=== PATIENT | female | born 1980 | race Two or more races ===

== ENCOUNTER 2016-10-04 03:21 | Emergency (ER) | payer MEDICAID ==
--- NOTE | 2016-10-04 03:27 | EDPHY ---
H & P HPI/ROS: HPI CHIEF COMPLAINT: Right thumb pain HISTORY OF PRESENT ILLNESS: The patient very pleasant 36-year-old female denies any significant medical history does not take any daily medications, she is not diabetic, she presents emergency room with throbbing pain to her right thumb. Prevented her to sleep. She states she pulled a hangnail out of their on the lateral side of her right thumb few days ago. Noticed it got red and swollen and painful. Throbbing. No fever. No streaking up her thumb no hand pain no wrist pain. Past Medical History: Denies Past Surgical History: Denies Social History: Denies daily use of drugs alcohol tobacco products Family History: Noncontributory ROS REVIEW OF SYSTEMS: A comprehensive 10 point review of systems is otherwise negative aside from elements mentioned in the history of present illness. Exam Constitutional triage nursing summary reviewed, vital signs reviewed, awake/ alert. Eyes normal conjunctivae and sclera, EOMI, PERRLA. HENT normal inspection, atraumatic, moist mucus membranes, no epistaxis, neck supple/ no meningismus, no raccoon eyes. Respiratory clear to auscultation bilaterally, normal breath sounds, no respiratory distress, no wheezing. Cardiovascular rate normal, regular rhythm, no murmur, no edema, distal pulses normal. Gastrointestinal soft, non-tender, no rebound, no guarding, normal bowel sounds, no distension, no pulsatile mass. Genitourinary no CVA tenderness. Musculoskeletal no midline vertebral tenderness, full range of motion, no calf swelling, no tenderness of extremities, no meningismus, good pulses, neurovascularly intact. Skin right thumb: There appears to be mild erythema and swelling to the lateral aspect of the right thumb where she removed a hangnail, there is no abscess or significant fluctuance. Paronychia present but redness and warmth. May be early infection. Neurologic awake, alert and oriented x 3, AAOx3, moves all 4 extremities equally, motor intact, sensory intact, CN II-XII intact, normal cerebellar, normal vision, normal speech. Psychiatric normal mood/affect. Heme/Lymph/Immune no lymphadenopathy. Differential Diagnosis: Includes but is not limited to in a particular order thumbnail infection, cellulitis, early paronychia Medical Decision Making: Plan for this patient recommend doing warm soaks 3 to 4 times a day for 20 minutes. Keflex antibiotic as prescribed. Return emergency room if there is worsening symptoms including worsening redness, pain , swelling Source: Patient - Medical/Surgical History Hx Asthma: No Hx Chronic Respiratory Disease: No Hx Diabetes: No Hx Cardiac Disease: No Hx Renal Disease: No Hx Cirrhosis: No Hx Alcoholism: No Hx HIV/AIDS: No Hx Splenectomy or Spleen Trauma: No Other PMH: PSH: Csection, gallbladder removal;. PMH: denies - Social History Smoking Status: Former smoker Allergies/Adverse Reactions: No Known Allergies Allergy (Verified 09/16/14 22:47) Home Medications: Medication Instructions Recorded Vit27&Calcium/Iron/FA 1 each PO DAILY 07/29/14 [] Chlorpheniramine Maleate 4 mg PO Q4 PRN 09/17/14 oxyCODONE IR [Oxycodone Ir (*)] 5 - 10 mg PO Q4 PRN 09/17/14 Cephalexin [Keflex] 500 mg PO Q6H #28 cap 10/04/16 Departure - Departure Disposition: Home, Routine, Self-Care Clinical Impression: Infection of thumb Condition: Good Instructions: Cellulitis (ED) Additional Instructions: 1. Warm soaks 3 to 4 times a day. 2. Take antibiotics as prescribed. 3. Return emergency room if there is worsening swelling, redness, drainage. Stand Alone Forms: Work Excuse Prescriptions: Cephalexin [Keflex] 500 mg PO Q6H #28 cap
[2016-10-04 03:33] VITALS: BP 131/95; PULSE 87; RESP 16; TEMP 98.1; O2SAT 98
== END 2016-10-04 03:39 | disposition home or self-care (01) ==
LOC: CED 03:21
DX: L08.9 Local infection of the skin and subcutaneous tissue, unspecified (principal); Z87.891 Personal history of nicotine dependence

== ENCOUNTER 2016-10-04 20:52 | Emergency (ER) | payer SELFPAY ==
[2016-10-04 21:22] VITALS: RESP 18
--- NOTE | 2016-10-04 22:11 | EDPHY ---
H & P Stated Complaint: Right thump infected and swollen, seen [facility] today. Time Seen by Provider: 10/04/16 22:11 - Personal History LMP (Females 10-55): 8-14 Days Ago Current Tetanus/Diphtheria Vaccine: Unsure Current Tetanus Diphtheria and Acellular Pertussis (TDAP): Unsure - Medical/Surgical History Hx Asthma: No Hx Chronic Respiratory Disease: No Hx Diabetes: No Hx Cardiac Disease: No Hx Renal Disease: No Hx Cirrhosis: No Hx Alcoholism: No Hx HIV/AIDS: No Hx Splenectomy or Spleen Trauma: No Other PMH: PSH: , cholecystectomy. PMH: denies - Social History Smoking Status: Never smoked Constitutional: Initial Vital Signs Temperature (C) 36.7 C 10/04/16 21:17 Heart Rate 62 10/04/16 21:17 Respiratory Rate 18 10/04/16 21:17 Blood Pressure 138/97 H 10/04/16 21:17 O2 Sat (%) 96 10/04/16 21:17 Allergies/Adverse Reactions: No Known Allergies Allergy (Verified 10/04/16 21:22) Home Medications: Medication Instructions Recorded Cephalexin [Keflex] 500 mg PO Q6H #28 cap 10/04/16 Medical Decision Making ED Course/Re-evaluation: CHIEF COMPLAINT: Thumbnail pain HISTORY OF PRESENT ILLNESS: The patient is a 36 y/o female complaining of possible infection under her right thumbnail. She pulled off a hangnail a few days ago without issue, but began to develop pain and swelling at the site yesterday. She was evaluated at [facility] early this morning for this and discharged with a script for Keflex. Her pain and swelling has since worsened and she was unable to get into an urgent care for reevaluation tonight. She denies fever or systemic symptoms. REVIEW OF SYSTEMS: A 10 point review of systems was performed and is negative with the exception of the elements mentioned in the history of present illness. PHYSICAL EXAM: HR, BP, O2 Sat, RR. Temp noted General Appearance: Alert, well hydrated, appropriate, and non-toxic appearing. Head: Atraumatic without scalp tenderness or obvious injury Eyes: Pupils equal, round, reactive to light and accommodation, EOMI, no trauma , no injection. Nose: Atraumatic, no rhinorrhea, clear. Throat: Mucus membranes moist. Neck: Supple Respiratory: No respiratory distress Cardiovascular: Good capillary refill all extremities. Musculoskeletal: Normal active ROM of all extremities, atraumatic. Neurological: Alert, appropriate, and interactive. Nonfocal neuro exam. Skin: Perionychium abscess around right thumbnail. No rashes, good turgor, no nodules on palpation. Past medical history: Denies Past surgical history: Denies Family history: noncontributory Social history: Lives in [place]. Employed. DIAGNOSTICS/PROCEDURES/CRITICAL CARE TIME: Procedure: Incision and Drainage of perionychium. The patient's abscess was located on the body part. Risks, benefits, alternatives discussed with the patient and consent obtained. The area was prepped and draped in sterile fashion. The patient received local anesthesia with 1% lidocaine with epinephrine. The abscess was incised with a #11 blade and purulent drainage was expressed. The wound was irrigated and dressed. The patient tolerated the procedure well. The procedure was performed by myself. DIFFERENTIAL DIAGNOSIS: The differential diagnosis for the patient's symptoms included but was not limited to perionychium abscess, cellulitis, other infectious causes. MEDICAL DECISION MAKIN36 y/o female presents with perionychium abscess along right thumbnail. No streaking. Abscess was drained successfully. I've advised patient to continue antibiotics as previously prescribed and follow up with her PCP as needed. Return precautions given. She is comfortable with this plan. Departure - Departure Disposition: Home, Routine, Self-Care Clinical Impression: Paronychia of right thumb Condition: Good Instructions: Cephalexin (By mouth), Paronychia (ED) Additional Instructions: Continue taking Keflex as prescribed. Follow up with your primary care provider for unimproved symptoms over the next few days. Return for worsening of condition. Referrals: Camilo Lee MD [Medical Doctor] - As per Instructions Report Scribed for: Skyler Giraldo Report Scribed by: Denisse Barber Date of Report: 10/04/16 Time of Report: 22:54
[2016-10-04] MEDS ORDERED: HYDROCOD/APAP 5/325 PREPACK#6 BTL TAKEHOME ONE (22:56)
[2016-10-04 23:24] VITALS: BP 130/100; PULSE 60; TEMP 97.3; O2SAT 94
== END 2016-10-04 23:27 | disposition home or self-care (01) ==
DX: L03.011 Cellulitis of right finger (principal)

== ENCOUNTER 2017-02-15 16:43 | Emergency (ER) | payer OTHER ==
[2017-02-15 16:48] VITALS: RESP 18; TEMP 97.9
[2017-02-15] MEDS ORDERED: HYDROmorphONE/DILAUDID 1 MG/ML INJ IVP ONE (17:28)
[2017-02-15] MEDS ORDERED: NS 1,000 ML IV ONE (17:28)
--- NOTE | 2017-02-15 17:50 | EDPHY ---
H & P Stated Complaint: Left flank pain - Personal History LMP (Females 10-55): Over 28 Days Ago Current Tetanus/Diphtheria Vaccine: Unsure Current Tetanus Diphtheria and Acellular Pertussis (TDAP): Unsure - Medical/Surgical History Hx Asthma: No Hx Chronic Respiratory Disease: No Hx Diabetes: No Hx Cardiac Disease: No Hx Renal Disease: No Hx Cirrhosis: No Hx Alcoholism: No Hx HIV/AIDS: No Hx Splenectomy or Spleen Trauma: No Other PMH: PSH: , cholecystectomy. PMH: History of small-bowel obstruction, non operative - Social History Smoking Status: Never smoked HPI/ROS: Chief complaint: Left flank pain History of present illness: This is a 36-year-old female who presents to the emergency department for left flank pain. Patient reports the onset of symptoms yesterday. She describes a sharp pain. It is persistent in nature. It does not radiate. She denies precipitating factors. She denies alleviating factors. It is occasionally worsened with deep breathing. She denies other associated signs or symptoms including no fevers, no cold symptoms, no chest pain, no shortness of breath, no cough, no abdominal pain, no nausea, vomiting or diarrhea, no changes in urination. Review of systems: A 10 point review of systems was obtained and other than described above was negative (Leonard Rahman) - Physical Exam Exam: General Appearance: Alert, appears uncomfortable. Eyes: Pupils equal and round no pallor or injection. ENT, Mouth: Mucous membranes moist. Respiratory: There are no retractions, lungs are clear to auscultation. Cardiovascular: Regular rate and rhythm. Gastrointestinal: Abdomen is soft and non tender, no masses, bowel sounds normal. Genitourinary: No CVA tenderness Neurological: Alert and oriented x4. Strength and sensation intact and symmetrical. Skin: Warm and dry, no rashes. Musculoskeletal: Neck is supple non tender. Head and spine are nontender to palpation. There is no tenderness palpation over the rest the back. However when I have her laterally rotate at the waist reproduces pain. Extremities are symmetrical, full range of motion. She is ambulating without difficulty. Psychiatric: Patient is oriented X 3, there is no agitation. (Leonard Rahman) Constitutional: Initial Vital Signs Temperature (C) 36.6 C 02/15/17 16:44 Heart Rate 68 02/15/17 16:44 Respiratory Rate 18 02/15/17 16:44 Blood Pressure 148/92 H 02/15/17 16:44 O2 Sat (%) 98 02/15/17 16:44 O2 Delivery Mode Room Air Allergies/Adverse Reactions: No Known Allergies Allergy (Verified 10/04/16 21:22) Home Medications: Medication Instructions Recorded NK [No Known Home Meds] 02/15/17 Medical Decision Making - Diagnostics Imaging: Discussed imaging studies w/ scallop dredger Radiologist - Diagnostics Imaging Results: Imaging Impressions Abdomen/Pelvis CT 02/15/17 19:08 Impression: 1. No definite etiology for the patient's pain. 2. Mild sigmoid diverticulosis, without evidence of diverticulitis. 3. Bladder distention. 4. Additional findings, as above. Findings discussed with Leonard Rahman PA-C, on February 15, 2017 at 2002. Attention: This CT examination is specifically designed to evaluate patients who are clinically suspected of having acute obstructive uropathy. This examination does not use radiographic contrast, and as such, provides only a limited evaluation of the abdomen, pelvis, and retroperitoneum. If there is further clinical suspicion for pathological conditions other than obstructive uropathy, a complete CT evaluation of the abdomen and pelvis utilizing intravenous and oral contrast should be considered. ED Course/Re-evaluation: Patient seen under the supervision of my secondary supervising physician Dr. Lobo Vang. Patient presents to the emergency department for left flank pain. It is sharp pain that is nonradiating without associated signs or symptoms. It is occasionally worsened with deep breathing. On physical exam I can reproduce it having patient laterally rotate at the waist. Blood studies including D-dimer are negative. Urinalysis is negative. CT scan is negative. I do not appreciate significant pathology at this time that requires further emergency department intervention or inpatient management. She has been offered pain medications but has declined. She is asked to follow up with a primary care doctor for recheck and referral information is provided. Strict return precautions are given. Patient voiced understanding and agreement with plan. (Leonard Rahman) Differential Diagnosis: Included but not limited to musculoskeletal pain, urinary tract disease, peptic ulcer disease, gastritis, pulmonary disease including pneumonia or pulmonary embolism (Leonard Rahman) - Data Points Laboratory Results: Laboratory Results 02/15/17 17:57 02/15/17 17:57 02/15/17 02/15/17 02/15/17 17:57 17:57 17:57 WBC RBC Hgb Hct MCV MCH MCHC RDW Plt Count MPV Neut % (Auto) Lymph % (Auto) Hodgeman % (Auto) Eos % (Auto) Baso % (Auto) Nucleat RBC Rel Count Absolute Neuts (auto) Absolute Lymphs (auto) Absolute Monos (auto) Absolute Eos (auto) Absolute Basos (auto) Absolute Nucleated RBC Immature Gran % Immature Gran # D-Dimer 0.41 ug/mLFEU ug/mLFEU (0.00-0.50) Sodium Potassium Chloride Carbon Dioxide Anion Gap BUN Creatinine Estimated GFR Glucose Calcium Total Bilirubin 0.2 mg/dL mg/dL (0.1-1.4) Conjugated Bilirubin 0.2 mg/dL mg/dL (0.0-0.5) Unconjugated Bilirubin 0.0 mg/dL mg/dL (0.0-1.1) AST 28 IU/L IU/L (14-46) ALT 38 IU/L IU/L (9-52) Alkaline Phosphatase 66 IU/L IU/L (38-126) Total Protein 7.0 g/dL g/dL (6.3-8.2) Albumin 4.1 g/dL g/dL (3.5-5.0) Lipase Beta HCG, Qual NEGATIVE Urine Color Urine Appearance Urine pH Ur Specific Rand[place] Urine Protein Urine Ketones Urine Blood Urine Nitrate Urine Bilirubin Urine Urobilinogen Ur Leukocyte Esterase Urine Glucose 02/15/17 02/15/17 02/15/17 17:57 17:57 17:46 WBC 8.44 10^3/uL 10^3/uL (3.80-9.50) RBC 4.82 10^6/uL 10^6/uL (4.18-5.33) Hgb 13.4 g/dL g/dL (12.6-16.3) Hct 40.1 % % (38.0-47.0) MCV 83.2 fL fL (81.5-99.8) MCH 27.8 pg L pg (27.9-34.1) MCHC 33.4 g/dL g/dL (32.4-36.7) RDW 12.9 % % (11.5-15.2) Plt Count 284 10^3/uL 10^3/uL (150-400) MPV 9.4 fL fL (8.7-11.7) Neut % (Auto) 56.3 % % (39.3-74.2) Lymph % (Auto) 32.0 % % (15.0-45.0) Hodgeman % (Auto) 7.5 % % (4.5-13.0) Eos % (Auto) 3.1 % % (0.6-7.6) Baso % (Auto) 0.7 % % (0.3-1.7) Nucleat RBC Rel Count 0.0 % % (0.0-0.2) Absolute Neuts (auto) 4.76 10^3/uL 10^3/uL (1.70-6.50) Absolute Lymphs (auto) 2.70 10^3/uL 10^3/uL (1.00-3.00) Absolute Monos (auto) 0.63 10^3/uL 10^3/uL (0.30-0.80) Absolute Eos (auto) 0.26 10^3/uL 10^3/uL (0.03-0.40) Absolute Basos (auto) 0.06 10^3/uL 10^3/uL (0.02-0.10) Absolute Nucleated RBC 0.00 10^3/uL 10^3/uL (0-0.01) Immature Gran % 0.4 % % (0.0-1.1) Immature Gran # 0.03 10^3/uL 10^3/uL (0.00-0.10) D-Dimer Sodium 141 mEq/L mEq/L (134-144) Potassium 3.9 mEq/L mEq/L (3.5-5.2) Chloride 107 mEq/L mEq/L (97-110) Carbon Dioxide 19 mEq/l L mEq/l (22-31) Anion Gap 15 mEq/L mEq/L (8-16) BUN 10 mg/dL mg/dL (7-23) Creatinine 0.7 mg/dL mg/dL (0.6-1.0) Estimated GFR > 60 Glucose 88 mg/dL mg/dL (70-100) Calcium 9.4 mg/dL mg/dL (8.5-10.4) Total Bilirubin Conjugated Bilirubin Unconjugated Bilirubin AST ALT Alkaline Phosphatase Total Protein Albumin Lipase 90 IU/L IU/L (23-300) Beta HCG, Qual Urine Color COLORLESS Urine Appearance CLEAR Urine pH 7.0 (5.0-7.5) Ur Specific [place] 1.003 (1.002-1.030) Urine Protein NEGATIVE (NEGATIVE) Urine Ketones NEGATIVE (NEGATIVE) Urine Blood NEGATIVE (NEGATIVE) Urine Nitrate NEGATIVE (NEGATIVE) Urine Bilirubin NEGATIVE (NEGATIVE) Urine Urobilinogen NEGATIVE EU EU (0.2-1.0) Ur Leukocyte Esterase NEGATIVE (NEGATIVE) Urine Glucose NEGATIVE (NEGATIVE) Medications Given: Discontinued Medications Hydromorphone HCl (Dilaudid) 1 mg IVP EDNOW ONE Stop: 02/15/17 17:29 Last Admin: 02/15/17 20:07 Dose: Not Given Sodium Chloride (Ns) 1,000 mls @ 0 mls/hr IV EDNOW ONE; Wide Open PRN Reason: Protocol Stop: 02/15/17 17:29 Last Admin: 02/15/17 18:33 Dose: 1,000 mls Departure - Departure Disposition: Home, Routine, Self-Care Clinical Impression: Left flank pain Condition: Good Instructions: Flank Pain (ED) Additional Instructions: Follow-up with a primary care doctor by next week for recheck Use ibuprofen 600 mg 3 times a day for the next 2-3 days for pain control If symptoms worsen or new symptoms develop return to the emergency room for recheck Referrals: NONE *PRIMARY CARE P,. [Primary Care Provider] - As per Instructions [facility],. [Clinic] - As per Instructions Ethel Swenson MD [Medical Doctor] - As per Instructions
[2017-02-15 17:53] LABS: COLOR COLORLESS; LEUKOCYTE ESTERASE,URINE NEGATIVE (NEGATIVE); NITRITE,URINE NEGATIVE (NEGATIVE)
[2017-02-15 18:03] LABS: % IMMATURE GRANULYOCYTES 0.4 % (0.0-1.1); ABSOLUTE IMMATURE GRANULOCYTES 0.03 10^3/uL (0.00-0.10); ADD DIFF? NO; ADD MORPH? NO; ADD SCAN? NO; ATYPICAL LYMPHOCYTE FLAG 10 (0-99); FRAGMENT RBC FLAG 0 (0-99); HEMATOCRIT 40.1 % (38.0-47.0); HEMOGLOBIN 13.4 g/dL (12.6-16.3); LEFT SHIFT FLG 0 (0-99); LIPEMIA HEMOLYSIS FLAG 80 (0-99); MEAN CELL HEMOGLOBIN 27.8 pg (27.9-34.1); MEAN CELL HEMOGLOBIN CONCENTR. 33.4 g/dL (32.4-36.7); MEAN CELL VOLUME 83.2 fL (81.5-99.8); MEAN PLATELET VOLUME 9.4 fL (8.7-11.7); PLATELET CLUMPS FLAG 20 (0-99); PLATELET COUNT 284 10^3/uL (150-400); RED BLOOD CELL COUNT 4.82 10^6/uL (4.18-5.33); RED CELL DISTRIBUTION WIDTH 12.9 % (11.5-15.2)
[2017-02-15 18:28] LABS: ANION GAP 15 mEq/L (8-16); CALCIUM 9.4 mg/dL (8.5-10.4); CARBON DIOXIDE 19 mEq/l (22-31); CHLORIDE 107 mEq/L (97-110); CREATININE 0.7 mg/dL (0.6-1.0); GLOMERULAR FILTRATION RATE > 60; GLUCOSE 88 mg/dL (70-100); POTASSIUM 3.9 mEq/L (3.5-5.2); SODIUM 141 mEq/L (134-144)
[2017-02-15 18:52] LABS: ALBUMIN 4.1 g/dL (3.5-5.0); BILIRUBIN,TOTAL 0.2 mg/dL (0.1-1.4); BILIRUBIN-CONJUGATED 0.2 mg/dL (0.0-0.5)
[2017-02-15 20:26] VITALS: BP 128/72; PULSE 67; O2SAT 99
== END 2017-02-15 20:26 | disposition home or self-care (01) ==
DX: R10.9 Unspecified abdominal pain (principal); E86.9 Volume depletion, unspecified; Z90.49 Acquired absence of other specified parts of digestive tract